=== PATIENT | male | born 1980 | race Caucasian/White ===

== ENCOUNTER → 2018-02-16 | Outpatient (CLI) | payer OTHER ==
[2016-08-22 09:50] VITALS: BP 122/79
[~2018-02-16] MED LIST: BUPIVACAINE MPF 0.25% 30 ML VIAL. ONE; methylPREDNISolone ACETATE 40 MG/ML VIAL. ONE
== END | disposition home or self-care (01) ==
LOC: SURG 09:02
PROVIDERS: ATTEND Anesthesiology Pain Medicine
DX: M79.1 Myalgia (principal); Z72.89 Other problems related to lifestyle; F17.210 Nicotine dependence, cigarettes, uncomplicated; Z91.018 Allergy to other foods
CPT/HCPCS: 20553; J1030; J3490

== ENCOUNTER 2020-11-08 01:41 | Emergency (ER) | payer OTHER ==
[~2020-11-08] VITALS: Ht 185.4 cm; Wt 119.5 kg
[2020-11-08 01:45] VITALS: BP 134/94
[2020-11-08] MEDS ORDERED: anti anxiety med (01:58)
[2020-11-08] MEDS ORDERED: TADA5TAB PO (01:58)
[2020-11-08] MEDS ORDERED: HYDR-2759 PO (02:05)
--- NOTE | 2020-11-08 02:05 | PHYS DOC ---
Past History Past Medical History: Asthma Past Surgical History: No Surgical History Alcohol Use: None Drug Use: None General Adult EDM: Chief Complaint: Hemorrhoid HPI: HPI: 40-year-old male presents with hemorrhoid. The patient has had a hemorrhoid for some time was about the size of the end of his pinky. Tonight around 1930 it started to be painful and it has not been painful. The pain has continued and not gotten better so he finally decided come the emergency room. He feels like it is gotten bigger but wanted to have it evaluated. The patient has never had surgery on a hemorrhoid in the past. He has had a bowel movement today and has been able to urinate. Review of Systems: Review of Systems: Constitutional: Denies fever or chills Eyes: Denies change in visual acuity HENT: Denies nasal congestion or sore throat Respiratory: Denies cough or shortness of breath Cardiovascular: Denies chest pain or edema GI: Denies abdominal pain, nausea, vomiting, bloody stools or diarrhea : Hemorrhoid Musculoskeletal: Denies back pain or joint pain Integument: Denies rash Neurologic: Denies headache, focal weakness or sensory changes Endocrine: Denies polyuria or polydipsia Lymphatic: Denies swollen glands Psychiatric: Denies depression or anxiety Allergies: Allergies: Allergies Coded Allergies Type Severity Reaction Last Updated Verified mushroom Allergy Intermediate 11/08/20 Yes Physical Exam: PE: Constitutional: Well developed, well nourished, no acute distress, non-toxic appearance. [] HENT: Normocephalic, atraumatic, bilateral external ears normal, oropharynx moist, no oral exudates, nose normal. [] Eyes: PERRLA, EOMI, conjunctiva normal, no discharge. [] Neck: Normal range of motion, no tenderness, supple, no stridor. [] Cardiovascular:Heart rate regular rhythm, no murmur [] Lungs & Thorax: Bilateral breath sounds clear to auscultation [] Abdomen: Bowel sounds normal, soft, no tenderness, no masses, no pulsatile masses. [] Skin: Warm, dry, no erythema, no rash. [] Back: No tenderness, no CVA tenderness. [] Extremities: No tenderness, no cyanosis, no clubbing, ROM intact, no edema. [] Neurologic: Alert and oriented X 3, normal motor function, normal sensory function, no focal deficits noted. [] Psychologic: Affect normal, judgement normal, mood normal. : External hemorrhoid 3 cm x 3 cm firm to palpation. [] EKG: EKG: [] Radiology/Procedures: Radiology/Procedures: [] Heart Score: C/O Chest Pain: N/A Risk Factors: Risk Factors: DM, Current or recent (<one month) smoker, HTN, HLP, family history of CAD, obesity. Risk Scores: Score 0 - 3: 2.5% MACE over next 6 weeks - Discharge Home Score 4 - 6: 20.3% MACE over next 6 weeks - Admit for Clinical Observation Score 7 - 10: 72.7% MACE over next 6 weeks - Early Invasive Strategies Course & Med Decision Making: Course & Med Decision Making Pertinent Labs and Imaging studies reviewed. (See chart for details) The patient's hemorrhoid is larger than I am comfortable attempting to exercise in the ER. I advised him to call the surgeon first thing Monday morning to schedule surgical treatment of this hemorrhoid. I will treat the patient with Arnett in the ER as well as medication for home. He states verbal understanding. He is stable for discharge at this time. [] Dragon Disclaimer: Dragon Disclaimer: This electronic medical record was generated, in whole or in part, using a voice recognition dictation system. Departure Departure: Impression: Primary Impression: External hemorrhoid Disposition: HOME / SELF CARE / HOMELESS Condition: STABLE Referrals: PCP,NO (PCP) Patient Instructions: Hemorrhoids, [id number] Scripts Hydrocodone/Acetaminophen (Hydrocodone-Acetamin 5-325 mg) 1 Each Tablet 1-2 EACH PO Q6HRS PRN for PAIN, #14 TAB Prov: BERENICE PITTS DO 11/08/20 BERENICE PITTS DO November 08, 2020 02:05
[2020-11-08] MEDS ORDERED: HYDROcodone/APAP 7.5/325MG 1 TAB TABLET PO ONE (02:15)
== END 2020-11-08 02:18 | disposition home or self-care (01) ==
LOC: ER 01:41
DX: K64.4 Residual hemorrhoidal skin tags (principal); J45.909 Unspecified asthma, uncomplicated; Z91.018 Allergy to other foods
CPT/HCPCS: 99283